=== PATIENT | female | born 1945 | race Caucasian/White ===

== ENCOUNTER 2017-07-17 00:04 | Inpatient (IN) | payer MEDICAID ==
[~2017-07-17] VITALS: Ht 167.6 cm; Wt 77.1 kg
[2017-07-17 01:33] LABS: BASOPHILS 0 % (0-2); EOSINOPHILS 1.4 % (0-7); HEMATOCRIT 46.2 % (36.0-48.0); HEMOGLOBIN 14.5 g/dL (12-16); IMMATURE GRANULOCYTES 0.2 % (0-5); LYMPHOCYTES 34.5 % (15-50); MCH 28.4 pg (26.0-34.0); MCHC 31.4 g/dL (31.0-37.0); MCV 90.6 fL (80.0-100.0); MEAN PLATELET VOLUME 10.6 fL (7.4-10.4); MONOCYTES 15.7 % (2-11); NEUTROPHILS 48.2 % (40-80); PLATELET COUNT 66 10x3/uL (130-400); RDW 13.6 % (11.5-14.5); WBC 4.3 10x3/uL (4.8-10.8)
[2017-07-17 01:48] LABS: ALBUMIN 3.3 g/dL (3.4-5.0); ALKALINE PHOSPHATASE 59 U/L (46-116); ALT (SGPT) 9 U/L (10-68); BILIRUBIN - TOTAL 0.44 mg/dL (0.2-1.3); CALC OSMOLALITY 288 mosm/kg (275-300); CALCIUM 8.7 mg/dL (8.5-10.1); CHLORIDE - SERUM 98 mmol/L (98-107); CREATINE KINASE 52 UL (21-215); CREATININE - SERUM 1.2 mg/dL (0.6-1.3); GLUCOSE 124 mg/dL (74-106); POTASSIUM - SERUM 3.1 mmol/L (3.5-5.1); SODIUM 143 mmol/L (136-145); UREA NITROGEN 22 mg/dL (7-18); VALPROIC ACID (DEPAKOTE) 141.1 ug/mL (50.0-100.0); eGFR NON AFRICAN AMERICAN 47 mL/min (90-120)
[2017-07-17 01:50] LABS: CARBON DIOXIDE 40.8 mmol/L (21.0-32.0); TROPONIN-I < 0.017 ng/mL (0.000-0.060)
[2017-07-17 02:14] LABS: APPEARANCE CLEAR (CLEAR); BILIRUBIN NEGATIVE (NEGATIVE); COLOR YELLOW (YELLOW); GLUCOSE NEGATIVE (NEGATIVE); KETONE NEGATIVE (NEGATIVE); NITRITE NEGATIVE (NEGATIVE); PROTEIN 1+ mg/dL (NEGATIVE); SPECIFIC GRAVITY 1.015 (1.005-1.020); UROBILINOGEN NORMAL (NORMAL)
[2017-07-17 02:16] LABS: BACTERIA FEW /hpf (NONE SEEN); EPITHELIAL CELLS 0-5 /hpf (0-5); RED CELLS - URINE 0-5 /hpf (0-5); WHITE CELLS - URINE 0-5 /hpf (0-5)
[2017-07-17 06:30] LABS: BASOPHILS 0 % (0-2); EOSINOPHILS 0.9 % (0-7); HEMATOCRIT 46.7 % (36.0-48.0); HEMOGLOBIN 14.7 g/dL (12-16); IMMATURE GRANULOCYTES 0.4 % (0-5); LYMPHOCYTES 24.1 % (15-50); MCH 28.9 pg (26.0-34.0); MCHC 31.5 g/dL (31.0-37.0); MCV 91.7 fL (80.0-100.0); MONOCYTES 9.6 % (2-11); PLATELET COUNT 66 10x3/uL (130-400); RBC 5.09 10x6/uL (4.00-5.40); RDW 13.7 % (11.5-14.5); WBC 4.6 10x3/uL (4.8-10.8)
[2017-07-17 06:58] LABS: CALC OSMOLALITY 287 mosm/kg (275-300); CALCIUM 8.6 mg/dL (8.5-10.1); CHLORIDE - SERUM 99 mmol/L (98-107); CKMB 0.2 U/L (0.0-3.6); CREATINE KINASE 49 UL (21-215); CREATININE - SERUM 1.2 mg/dL (0.6-1.3); GLUCOSE 144 mg/dL (74-106); MAGNESIUM - SERUM 2.3 mg/dL (1.8-2.4); POTASSIUM - SERUM 3.7 mmol/L (3.5-5.1); SODIUM 141 mmol/L (136-145); TROPONIN-I < 0.017 ng/mL (0.000-0.060); UREA NITROGEN 23 mg/dL (7-18); eGFR NON AFRICAN AMERICAN 47 mL/min (90-120)
[2017-07-17] MEDS ORDERED: ACIDOPHILUS LAC1 CAP PO (19:39)
[2017-07-17] MEDS ORDERED: CELEXA20 MG PO (19:39)
[2017-07-17] MEDS ORDERED: DEPAKOTE SPRIN125 MG PO ×2 (19:41→19:50)
[2017-07-17] MEDS ORDERED: LASIX40 MG PO (19:43)
[2017-07-17] MEDS ORDERED: LIPITOR10 MG PO (19:44)
[2017-07-17] MEDS ORDERED: NAPROXEN SODIU220 M1 PO (19:44)
[2017-07-17] MEDS ORDERED: SYNTHROID25 MCG PO (19:46)
[2017-07-17] MEDS ORDERED: MUCUS RELIEF400 MG PO (19:48)
[2017-07-17] MEDS ORDERED: IPRAT-ALBUT 0.5-3 ML UPD (19:51)
[2017-07-17] MEDS ORDERED: NEURONTIN 300300 MG PO (19:52)
[2017-07-17] MEDS ORDERED: SEROQUEL50 MG PO (19:53)
[2017-07-17] MEDS ORDERED: HUMULIN N100 U/ML (19:54)
[2017-07-17 20:00] VITALS: BP 111/47
[2017-07-18] VITALS (7 sets, daily range): BP systolic 111–136; BP diastolic 47–70; Ht 167.6 cm; Wt 77.1 kg
[2017-07-18 06:17] LABS: ANION GAP 8.4 mmol/L (8-16); BILIRUBIN - TOTAL 0.38 mg/dL (0.2-1.3); CALCIUM 8.5 mg/dL (8.5-10.1); CARBON DIOXIDE 35.7 mmol/L (21.0-32.0); CREATININE - SERUM 1.3 mg/dL (0.6-1.3); POTASSIUM - SERUM 4.1 mmol/L (3.5-5.1); PROTEIN - SERUM 7.1 g/dL (6.4-8.2)
[2017-07-18 06:20] LABS: BASOPHILS 0.1 % (0-2); EOSINOPHILS 0.1 % (0-7); HEMATOCRIT 39.9 % (36.0-48.0); HEMOGLOBIN 12.9 g/dL (12-16); IMMATURE GRANULOCYTES 0.5 % (0-5); LYMPHOCYTES 8.6 % (15-50); MCH 28.5 pg (26.0-34.0); MCHC 32.3 g/dL (31.0-37.0); MEAN PLATELET VOLUME 11.1 fL (7.4-10.4); MONOCYTES 3.4 % (2-11); NEUTROPHILS 87.3 % (40-80); RBC 4.52 10x6/uL (4.00-5.40); RDW 13.6 % (11.5-14.5)
[2017-07-18 06:21] LABS: MCV 88.3 fL (80.0-100.0); PLATELET COUNT 52 10x3/uL (130-400); WBC 7.4 10x3/uL (4.8-10.8)
[2017-07-19] VITALS: BP 137/67
[2017-07-19 04:00] VITALS: BP 150/75
[2017-07-19 07:25] LABS: HEMATOCRIT 38.2 % (36.0-48.0); HEMOGLOBIN 12.3 g/dL (12-16); MCH 28.6 pg (26.0-34.0); MCHC 32.2 g/dL (31.0-37.0); MCV 88.8 fL (80.0-100.0); MEAN PLATELET VOLUME 10.2 fL (7.4-10.4); RDW 13.7 % (11.5-14.5)
[2017-07-19 07:32] LABS: ALBUMIN 2.8 g/dL (3.4-5.0); BILIRUBIN - TOTAL 0.4 mg/dL (0.2-1.3); CALCIUM 8.7 mg/dL (8.5-10.1); CARBON DIOXIDE 34.9 mmol/L (21.0-32.0); CREATININE - SERUM 1.1 mg/dL (0.6-1.3); PROTEIN - SERUM 6.8 g/dL (6.4-8.2)
[2017-07-19 07:35] LABS: ANION GAP 7.5 mmol/L (8-16); POTASSIUM - SERUM 3.4 mmol/L (3.5-5.1)
[2017-07-19 07:39] LABS: PLATELET COUNT 70 10x3/uL (130-400)
[2017-07-19 07:57] LABS: LYMPHOCYTES 26 % (15-50); MONOCYTES 12 % (2-11); NEUTROPHILS 60 % (40-80); PLATELET ESTIMATE DECREASED
[2017-07-19 08:04] VITALS: BP 135/51
[2017-07-19 12:19] VITALS: BP 142/80
[2017-07-19 15:50] VITALS: BP 153/60
[2017-07-19 20:00] VITALS: BP 151/65
[2017-07-20 07:47] VITALS: BP 134/65
[2017-07-20 12:23] VITALS: BP 148/72
[2017-07-20 15:55] VITALS: BP 132/53
[2017-07-20 19:53] VITALS: BP 152/80
[2017-07-21 06:36] LABS: BASOPHILS 0 % (0-2); EOSINOPHILS 0 % (0-7); HEMATOCRIT 39.5 % (36.0-48.0); HEMOGLOBIN 12.7 g/dL (12-16); IMMATURE GRANULOCYTES 0.8 % (0-5); LYMPHOCYTES 16.4 % (15-50); MCH 28.6 pg (26.0-34.0); MCHC 32.2 g/dL (31.0-37.0); MEAN PLATELET VOLUME 10.2 fL (7.4-10.4); MONOCYTES 6.1 % (2-11); NEUTROPHILS 76.7 % (40-80); RBC 4.44 10x6/uL (4.00-5.40); RDW 14.1 % (11.5-14.5)
[2017-07-21 06:38] LABS: PLATELET COUNT 103 10x3/uL (130-400); WBC 4.9 10x3/uL (4.8-10.8)
[2017-07-21 06:55] LABS: ALBUMIN 2.8 g/dL (3.4-5.0); ANION GAP 9.2 mmol/L (8-16); BILIRUBIN - TOTAL 0.4 mg/dL (0.2-1.3); CARBON DIOXIDE 33.7 mmol/L (21.0-32.0); CREATININE - SERUM 0.9 mg/dL (0.6-1.3); POTASSIUM - SERUM 3.9 mmol/L (3.5-5.1)
[2017-07-21 08:17] VITALS: BP 109/70
[2017-07-21] MEDS ORDERED: MUCINEX600 MG PO (09:47)
[2017-07-21] MEDS ORDERED: SINGULAIR10 MG PO (09:47)
[2017-07-21] MEDS ORDERED: FLUTICASONE PRO16 GM NASAL (09:48)
[2017-07-21] MEDS ORDERED: PREDNISONE20 MG PO (09:50)
[2017-07-21 11:52] VITALS: BP 123/69
[2017-07-21 20:00] VITALS: BP 117/54
[2017-07-22] VITALS: BP 118/60
[2017-07-22 04:00] VITALS: BP 140/74
[2017-07-22 09:07] VITALS: BP 116/50
[2017-07-22 13:26] VITALS: BP 108/67
[2017-07-22 16:19] VITALS: BP 125/56
[2017-07-22 20:00] VITALS: BP 109/59
[2017-07-23] VITALS: BP 118/74
[2017-07-23 04:00] VITALS: BP 120/60
[2017-07-23 08:21] VITALS: BP 114/57
[2017-07-23 12:09] VITALS: BP 100/52
[2017-07-23 13:15] LABS: PLT AB - HLA CLASS 1 QNS (())
== END 2017-07-23 14:19 | DRG 813 ==
LOC: D.ER 00:04 → D.MS 04:20 → D.EDHOLD 04:20 → D.MS 11:40
PROVIDERS: Family Medicine; Legal Medicine
DX: D69.6 Thrombocytopenia, unspecified (principal); J96.21 Acute and chronic respiratory failure with hypoxia; G93.41 Metabolic encephalopathy; J96.22 Acute and chronic respiratory failure with hypercapnia; J44.1 Chronic obstructive pulmonary disease with (acute) exacerbation; S82.65XA Nondisplaced fracture of lateral malleolus of left fibula, initial encounter for closed fracture; K76.89 Other specified diseases of liver; W19.XXXA Unspecified fall, initial encounter; Y92.129 Unspecified place in nursing home as the place of occurrence of the external cause; Z99.81 Dependence on supplemental oxygen; F03.90 Unspecified dementia, unspecified severity, without behavioral disturbance, psychotic disturbance, mood disturbance, and anxiety; E03.9 Hypothyroidism, unspecified; G62.9 Polyneuropathy, unspecified; J30.9 Allergic rhinitis, unspecified; F32.9 Major depressive disorder, single episode, unspecified; Z87.891 Personal history of nicotine dependence

== ENCOUNTER 2017-08-21 10:11 | Emergency (ER) | payer MEDICAID, MEDICARE ==
[2017-07-18 12:43] VITALS: BMI 27.4
[~2017-08-21 10:11] MED LIST: ACIDOPHILUS LAC1 CAP PO; CELEXA20 MG PO; DEPAKOTE SPRIN125 MG PO; FLUTICASONE PRO16 GM NASAL; HUMULIN N100 U/ML; IPRAT-ALBUT 0.5-3 ML UPD; LASIX40 MG PO; LIPITOR10 MG PO; MUCINEX600 MG PO; MUCUS RELIEF400 MG PO; NAPROXEN SODIU220 M1 PO; NEURONTIN 300300 MG PO; PREDNISONE20 MG PO; SEROQUEL50 MG PO; SINGULAIR10 MG PO; SYNTHROID25 MCG PO
== END 2017-08-21 12:15 | disposition home or self-care (01) ==
LOC: D.ER 10:11
DX: S00.83XA Contusion of other part of head, initial encounter (principal); W01.0XXA Fall on same level from slipping, tripping and stumbling without subsequent striking against object, initial encounter; Y93.89 Activity, other specified; Y92.129 Unspecified place in nursing home as the place of occurrence of the external cause; J44.9 Chronic obstructive pulmonary disease, unspecified; E11.9 Type 2 diabetes mellitus without complications